=== PATIENT | male | born 1955 | race Caucasian/White ===

== ENCOUNTER 2018-11-06 07:01 | Day surgery (SDC) | payer OTHER ==
[~2018-11-06] VITALS: Ht 177.8 cm; Wt 92.4 kg
[~2018-11-06 07:01] MED LIST: METF500T24 PO; PROPOFOL 200 MG INJ ONE
[2018-11-06 08:33] VITALS: Ht 177.8 cm; Wt 92.4 kg
[2018-11-06] MEDS ORDERED: OMEPRAZOLE (08:46)
[2018-11-06] MEDS ORDERED: MIRALAX (08:46)
[2018-11-06] MEDS ORDERED: LIDOCAINE 100 MG SYRINGE ONE (08:55)
[2018-11-06] MEDS ORDERED: PROPOFOL 20 ML ONE (08:55)
[2018-11-06 08:59] VITALS: BP 155/93; PULSE 66; RESP 14
--- NOTE | 2018-11-06 09:11 | PREAC ---
Date/Time of Note Date/Time of Note DATE: 11/06/18 TIME: 09:00 Anesthesia Eval and Record Evaluation Time Pre-Procedure Interview DATE: 11/06/18 TIME: 09:00 Age 63 Sex male NPO: 8 hrs Preoperative diagnosis reflux esophagitis /positive occult blood Planned procedure EGD / Colonosopy Past Medical History Past Medical History: Includes Endo: Diabetes GI: GERD Surgery & Anesthesia Issues No known issue Meds Anticoagulation: No Beta Jerome within 24 hr: No Reason Beta Jerome not given: Pt. not on B-Jerome Reported Medications [Miralax] No Conflict Check 11/06/18 [Omeprazole] No Conflict Check 11/06/18 Metformin Hcl* (Metformin Hcl*) 500 Mg Tablet, 500 MG PO WITH BREAKFAST PRN for DAILY, #30 TAB 05/31/16 Meds reviewed: Yes Allergies Coded Allergies: No Known Allergy (Unverified , 11/06/18) Allergies Reviewed: Yes Labs/Studies Labs Reviewed: Reviewed by anesthesiologist test: N/A Pre-procedure Exam Last vitals Vital Signs Date Temp Pulse Resp B/P (MAP) Pulse Ox O2 O2 Flow FiO2 Time Delivery Rate 11/06/18 97.9 66 14 155/93 95 Room Air 08:59 (113) Airway: Adequate mouth opening Mallampati: Mallampati II Teeth: Abnormal Lung: Normal Heart: Normal ASA Physical Status ASA physical status: 2 Emergency: None Planned Anesthetic General/MAC: MAC Pre-operative Attestations Prior to commencing anesthesia and surgery, the patient was re-evaluated, there was verification of: *The patient's identity *The results of appropriate recent lab work and preoperative vital signs *The above evaluation not changing prior to induction *Anesthetic plan, risk benefits, alternative and complications discussed with patient/family; questions answered; patient/family understands, accepts and wishes to proceed. DELMIS OSBORNE Nov 06, 2018 09:10
[2018-11-06] MEDS ORDERED: LABETALOL HCL 20MG INJ IV PRN (09:30)
[2018-11-06] MEDS ORDERED: METOCLOPRAMIDE 10 MG INJ IV PRN (09:30)
[2018-11-06] MEDS ORDERED: ONDANSETRON 4 MG INJ IV PRN (09:30)
[2018-11-06] MEDS ORDERED: hydrALAzine 20 MG INJ IV PRN (09:30)
--- NOTE | 2018-11-06 09:46 | PAC ---
Date/Time of Note Date/Time of Note DATE: 11/06/18 TIME: 09:46 Post-Anesthesia Notes Post-Anesthesia Note Last documented vital signs Vital Signs Date Temp Pulse Resp B/P (MAP) Pulse Ox O2 O2 Flow FiO2 Time Delivery Rate 11/06/18 97.9 66 14 155/93 95 Room Air 08:59 (113) Activity: WNL Respiratory function: WNL Cardiovascular function: WNL Mental status: Baseline Pain reasonably controlled: Yes Hydration appropriate: Yes Nausea/Vomiting absent: Yes DELMIS OSBORNE Nov 06, 2018 09:46
[2018-11-06 10:33] VITALS: BP 129/87; RESP 20
== END 2018-11-06 10:42 | disposition home or self-care (01) ==
LOC: GIL 07:01
PROVIDERS: ATTEND Internal Medicine Gastroenterology
DX: R19.4 Change in bowel habit (principal); K64.8 Other hemorrhoids; K44.9 Diaphragmatic hernia without obstruction or gangrene; K22.10 Ulcer of esophagus without bleeding; E11.9 Type 2 diabetes mellitus without complications
CPT/HCPCS: 43239; 45380; 82962; 88305; J2001; Z7610